=== PATIENT | female | born 1990 | race Caucasian/White ===

== ENCOUNTER 2022-09-06 10:21 | Day surgery (SDC) | payer OTHER ==
[2022-09-05 11:04] LABS: Hemoglobin 12.8 g/dL (12.0-15.5); Mean Corpuscular HGB CONC 33.9 g/dL (32.0-36.0); Mean Corpuscular Hemoglobin 29.2 pg (27.0-33.0); Mean Corpuscular Volume 86.1 fl (81.6-98.3); Mean Platelet Volume 9.6 fl (7.4-10.4); Platelet Count 383 10x3/uL (150-450); Red Blood Cell (RBC) Count 4.39 10x6/uL (3.90-5.03); White Blood Cell (WBC) Count 8.3 10x3/uL (3.5-10.5)
[2022-09-05 12:41] VITALS: BMI 34.0
[2022-09-06] MEDS ORDERED: Acetaminophen 500 MG TAB ONE (11:19)
[2022-09-06] MEDS ORDERED: Scopolamine 1.5 mg/72 hour Patch ONE (11:20)
[2022-09-06 11:34] LABS: Anion Gap 14 mmol/L (10-20); BUN (Urea Nitrogen) 7 mg/dL (7.0-18.7); Calc. Creatinine Clearance 147 mL/min (70-130); Calcium 9.6 mg/dL (7.8-10.44); Carbon Dioxide 22 mmol/L (22-29); Chloride 106 mmol/L (98-107); Estimated GFR 117; Glucose 106 mg/dL (70-105); Potassium 4.2 mmol/L (3.5-5.1); Sodium 138 mmol/L (136-145)
[2022-09-06] MEDS ORDERED: CEFAZOLIN 2 GM VIAL ONE (13:19)
[2022-09-06] MEDS ORDERED: PROPOFOL 20 ML ONE ×2 (13:21)
[2022-09-06] MEDS ORDERED: Fentanyl 100 MCG/2 ML VIAL ONE (13:21)
[2022-09-06] MEDS ORDERED: Ondansetron PF 4 MG/2 ML Vial ONE (13:59)
[2022-09-06] MEDS ORDERED: Dexamethasone 4 mg/ml Vial ONE (13:59)
[2022-09-06] MEDS ORDERED: Lidocaine 1% PF 5 ML VIAL ONE (13:59)
[2022-09-06] MEDS ORDERED: PHENYLEPHRINE-NS 100 MCG/ML 10 ML SYRINGE ONE (14:11)
== END 2022-09-06 15:26 | disposition home or self-care (01) ==
LOC: CSHSDC 10:21
PROVIDERS: ATTEND Obstetrics & Gynecology
PROC: 10D17ZZ Extraction of Products of Conception, Retained, Via Natural or Artificial Opening (ICD-10-PCS; principal; 2022-09-06)
DX: O02.1 Missed abortion (principal); E03.9 Hypothyroidism, unspecified; R73.03 Prediabetes; Z79.899 Other long term (current) drug therapy; Z79.84 Long term (current) use of oral hypoglycemic drugs
CPT/HCPCS: 80048; 85027; 86850; 86900; 86901; 88305; J1100; J2405; J2704; J3010